=== PATIENT | female | born 1980 | race Caucasian/White ===

== ENCOUNTER 2016-11-29 07:00 | Emergency (ER) | payer MEDICAID ==
[~2016-11-29] VITALS: Ht 162.6 cm; Wt 70.0 kg
[~2016-11-29 07:00] MED LIST: FLUC100T2 PO; FLUC150T PO
[2016-11-29 07:12] VITALS: BP 95/61; PULSE 70; RESP 17; TEMP 98.7; O2SAT 97
[2016-11-29] MEDS ORDERED: SODIUM CHLOR 0.9% 1000 ML INJ 1,000 ML IV ONE (07:45)
[2016-11-29] MEDS ORDERED: SODIUM CHLORIDE 0.9% FLUSH 10 ML FLUSH IVF PRN (07:45)
[2016-11-29] MEDS ORDERED: ONDANSETRON HCL 4 MG/2 ML VIAL IVP ONE (07:45)
--- NOTE | 2016-11-29 07:53 | PD ---
HPI Chief Complaint: Alcohol/Drug Intoxication Time Seen by Provider: 07:27 Travel History International Travel<30 days: No Contact w/Intl Traveler<30days: No Traveled to known affect area: No History of Present Illness HPI Patient is a 36 year old female who is BIBEMS for what they say is intoxication. Per EMS, she was drinking with family and she passed out from drinking too much. EMS reports she doesn't normally drink. The patient awakens easily, and says she was drinking last night and that she has no complaints. When family arrived, they report she had 2 beers and some coffee last night. They says she complained of some chest pain and she vomited. They say she then became unresponsive and stiff and she bit her tongue. They report this is not the first time this has happened and it has happened when she was not drinking. [facility] Past Medical History Medical History: Denies Significant Hx ?: Not : 2 Para: 2 Past Surgical History Surgical History: No Previous Surgery Section: Yes (2007) Social History Alcohol Use: No Tobacco Use: No Substance Use: No Allergies-Medications (Allergen,Severity, Reaction): Coded Allergies: No Known Allergies (Verified , 12/29/14) Reported Meds & Prescriptions Reported Meds & Active Scripts Active No Active Prescriptions or Reported Medications Review of Systems ROS Limitations: Intoxication, Altered Mental Status Physical Exam Narrative GENERAL: Sleepy, but awakens easily. SKIN: Focused skin assessment warm/dry. HEAD: Atraumatic. Normocephalic. EYES: Pupils equal and round and reactive. No scleral icterus. Extraocular movements intact. ENT: Mucous membranes pink and moist. NECK: Trachea midline. No JVD. CARDIOVASCULAR: Regular rate and rhythm. No murmur appreciated. RESPIRATORY: No accessory muscle use. Clear to auscultation. Breath sounds equal bilaterally. GASTROINTESTINAL: Abdomen soft, non-tender, nondistended. MUSCULOSKELETAL: No obvious deformities. No clubbing. No cyanosis. No edema. NEUROLOGICAL: Awake and alert. No obvious cranial nerve deficits. Motor grossly within normal limits. Normal speech. PSYCHIATRIC: Appropriate mood and affect; insight and judgment normal. Data Data Last Documented VS Vital Signs Date Time Temp Pulse Resp B/P Pulse Ox O2 Delivery O2 Flow Rate FiO2 11/29/16 09:06 87 18 109/66 98 Room Air 11/29/16 07:12 98.7 Orders Electrocardiogram (11/29/16 07:45) Ed Urine Pregnancytest Poc (11/29/16 07:45) Complete Blood Count With Diff (11/29/16 07:45) Comprehensive Metabolic Panel (11/29/16 07:45) Troponin I (11/29/16 07:45) Act Partial Throm Time (Ptt) (11/29/16 07:45) Prothrombin Time / Inr (Pt) (11/29/16 07:45) Urinalysis - C+S If Indicated (11/29/16 07:45) Ua Includes Microscopic (11/29/16 07:45) Chest, Single Ap (11/29/16 07:45) Ct Brain W/O Iv Contrast(Rout) (11/29/16 07:45) Ecg Monitoring (11/29/16 07:45) Iv Access Insert/Monitor (11/29/16 07:45) Oximetry (11/29/16 07:45) Ondansetron Inj (Zofran Inj) (11/29/16 07:45) Sodium Chloride 0.9% Flush (Ns Flush) (11/29/16 07:45) Sodium Chlor 0.9% 1000 Ml Inj (Ns 1000 M (11/29/16 07:45) Alcohol (Ethanol) (11/29/16 07:45) Drug Screen, Random Urine (11/29/16 07:45) Mandatory Outpatient Referral (11/29/16 10:37) Labs Laboratory Tests Test 11/29/16 11/29/16 07:55 09:00 White Blood Count 6.1 TH/MM3 Red Blood Count 4.52 MIL/MM3 Hemoglobin 13.1 GM/DL Hematocrit 39.1 % Mean Corpuscular Volume 86.5 FL Mean Corpuscular Hemoglobin 28.9 PG Mean Corpuscular Hemoglobin 33.3 % Concent Red Cell Distribution Width 13.9 % Platelet Count 238 TH/MM3 Mean Platelet Volume 7.1 FL Neutrophils (%) (Auto) 73.2 % Lymphocytes (%) (Auto) 20.8 % Monocytes (%) (Auto) 5.6 % Eosinophils (%) (Auto) 0.2 % Basophils (%) (Auto) 0.2 % Neutrophils # (Auto) 4.5 TH/MM3 Lymphocytes # (Auto) 1.3 TH/MM3 Monocytes # (Auto) 0.3 TH/MM3 Eosinophils # (Auto) 0.0 TH/MM3 Basophils # (Auto) 0.0 TH/MM3 CBC Comment DIFF FINAL Differential Comment Prothrombin Time 11.7 SEC Prothromb Time International 1.1 RATIO Ratio Activated Partial 21.9 SEC Thromboplast Time Sodium Level 144 MEQ/L Potassium Level 3.6 MEQ/L Chloride Level 113 MEQ/L Carbon Dioxide Level 22.5 MEQ/L Anion Gap 9 MEQ/L Blood Urea Nitrogen 8 MG/DL Creatinine 0.38 MG/DL Estimat Glomerular Filtration 192 ML/MIN Rate Random Glucose 124 MG/DL Calcium Level 7.7 MG/DL Total Bilirubin 0.3 MG/DL Aspartate Amino Transf 65 U/L (AST/SGOT) Alanine Aminotransferase 104 U/L (ALT/SGPT) Alkaline Phosphatase 63 U/L Troponin I LESS THAN 0.02 NG/ML Total Protein 6.9 GM/DL Albumin 3.4 GM/DL Ethyl Alcohol Level 104 MG/DL Urine Color LIGHT-YELLOW Urine Turbidity CLEAR Urine pH 6.0 Urine Specific [place] 1.007 Urine Protein NEG mg/dL Urine Glucose (UA) NEG mg/dL Urine Ketones NEG mg/dL Urine Occult Blood SMALL Urine Nitrite NEG Urine Bilirubin NEG Urine Urobilinogen LESS THAN 2.0 MG/DL Urine Leukocyte Esterase NEG Urine WBC 1 /hpf Urine Squamous Epithelial <1 /hpf Cells Microscopic Urinalysis Comment CULT NOT INDICATED Urine Opiates Screen NEG Urine Barbiturates Screen NEG Urine Amphetamines Screen NEG Urine Benzodiazepines Screen NEG Urine Cocaine Screen NEG Urine Cannabinoids Screen NEG MDM Medical Decision Making Medical Screen Exam Complete: Yes Emergency Medical Condition: Yes Medical Record Reviewed: Yes Differential Diagnosis Intoxication versus seizure versus electrolyte abnormality Narrative Course Patient is a 36-year-old female who comes in after she syncopized or possibly had a seizure. Her family reports she only had 2 drinks last night. Exam shows no acute abnormalities. She is currently completely awake and alert, and has no memory of the event last night. Labs sent show elevated AST and ALTs. She is informed of these results. She is advised to avoid alcohol and Tylenol. Advised to follow-up with her doctor to have these tests repeated. CT head performed shows no acute abnormalities. Mandatory referral placed to neurology for possible seizure. She is advised to follow up regarding this. Advised to return to the ED as needed for any worsening symptoms. Diagnosis Primary Impression: Syncope Qualified Code: R55 - Syncope, unspecified syncope type Patient Instructions: General Instructions, New-Onset Seizure in Adults (ED), Syncope (ED) Additional Instructions: Follow-up with your doctor regarding your liver enzymes that were elevated today. Follow up with neurology for possible seizure activity. Avoid alcohol and Tylenol use. Drink plenty of fluids. Return to the ED as needed for any worsening symptoms. Scripts No Active Prescriptions or Reported Meds Disposition: 01 DISCHARGE HOME Condition: Stable Akua Noyola MD Nov 29, 2016 07:53
[2016-11-29 08:22] LABS: AUTOMATED NEUTROPHIL # 4.5 TH/MM3 (1.8-7.7); BASOPHIL % 0.2 % (0.0-2.0); EOSINOPHIL % 0.2 % (0.0-4.0); HEMATOCRIT 39.1 % (35.0-46.0); HEMO FLAGS DIFF FINAL; LYMPH % 20.8 % (9.0-44.0); LYMPHOCYTE # 1.3 TH/MM3 (1.0-4.8); MEAN CELL VOLUME 86.5 FL (80.0-100.0); MEAN CORPUSCULAR HEMOGLOBIN 28.9 PG (27.0-34.0); MEAN CORPUSCULAR HGB CONC 33.3 % (32.0-36.0); MONO % 5.6 % (0.0-8.0); NEUT % 73.2 % (16.0-70.0); PLATELET COUNT 238 TH/MM3 (150-450); RED BLOOD COUNT 4.52 MIL/MM3 (4.00-5.30); RED CELL DISTRIBUTION WIDTH 13.9 % (11.6-17.2); WHITE BLOOD COUNT 6.1 TH/MM3 (4.0-11.0)
[2016-11-29 08:30] LABS: APTT (PATIENT) 21.9 SEC (24.3-30.1); INTERNATIONAL NORMALIZED RATIO 1.1 RATIO; PROTHROMBIN TIME - PATIENT 11.7 SEC (9.8-11.6)
[2016-11-29 08:46] LABS: ANION GAP 9 MEQ/L (5-15); AST (GOT) 65 U/L (15-37); BICARBONATE 22.5 MEQ/L (21.0-32.0); BLOOD UREA NITROGEN 8 MG/DL (7-18); CHLORIDE 113 MEQ/L (98-107); GLOMERULAR FILTRATION RATE 192 ML/MIN (>89); POTASSIUM 3.6 MEQ/L (3.5-5.1); SODIUM (NA) 144 MEQ/L (136-145)
[2016-11-29 08:47] LABS: ALT (GPT) 104 U/L (10-53)
[2016-11-29 08:51] LABS: ALKALINE PHOSPHATASE 63 U/L (45-117); TOTAL BILIRUBIN ADULT 0.3 MG/DL (0.2-1.0)
--- NOTE | 2016-11-29 08:52 | RADRPT ---
EXAM DATE/TIME: 11/29/2016 08:24 [facility] COMPARISON: No previous studies available for comparison. INDICATIONS : Shortness of breath. MEDICAL HISTORY : None. SURGICAL HISTORY : None. ENCOUNTER: Initial ACUITY: 1 day PAIN SCORE: 0/10 LOCATION: Bilateral chest FINDINGS: Portable AP view of the chest demonstrates a normal-sized cardiac silhouette. No effusion, consolidat ion, or pneumothorax is visualized. The bones and soft tissues demonstrate no acute abnormality. CONCLUSION: No acute cardiopulmonary abnormality is identified. Darryl Kong MD on November 29, 2016 at 8:50 Board Certified Radiologist. This report was verified electronically.
[2016-11-29 09:06] VITALS: BP 109/66; PULSE 87; RESP 18; O2SAT 98
[2016-11-29 09:22] LABS: BLOOD, URINE SMALL (NEG); GLUCOSE,URINE NEG (NEG); KETONE, URINE NEG (NEG); NITRITE,URINE NEG (NEG); SQUAMOUS EPITHELIAL CELL URINE <1 /hpf (0-5); URINE COLOR LIGHT-YELLOW (YELLW/STRAW)
[2016-11-29 09:25] LABS: COMMENT (UR) CULT NOT INDICATED; CULTURE IF INDICATED CULT NOT INDICATED
[2016-11-29 09:37] LABS: AMPHETAMINE, URINE NEG (NEG); BARBITURATES, URINE NEG (NEG); COCAINE, URINE NEG (NEG)
--- NOTE | 2016-11-29 10:01 | RADRPT ---
EXAM DATE/TIME: 11/29/2016 09:35 [facility] COMPARISON: CT BRAIN W/O CONTRAST, April 30, 2010, 2:28. INDICATIONS : Dizziness, possible seizure. RADIATION DOSE: 26.55 CTDIvol (mGy) MEDICAL HISTORY : None SURGICAL HISTORY : None. ENCOUNTER: Initial ACUITY: 1 day PAIN SCALE: 0/10 LOCATION: cranial TECHNIQUE: Multiple contiguous axial images were obtained of the head. Using automated exposure control and adj ustment of the mA and/or kV according to patient size, radiation dose was kept as low as reasonably a chievable to obtain optimal diagnostic quality images. DICOM format image data is available electro nically for review and comparison. FINDINGS: CEREBRUM: The ventricles are normal for age. No evidence of midline shift, mass lesion, hemorrhage or acute in farction. No extra-axial fluid collections are seen. POSTERIOR FOSSA: The cerebellum and brainstem are intact. The 4th ventricle is midline. The cerebellopontine angle i s unremarkable. EXTRACRANIAL: The visualized portion of the orbits is intact. SKULL: The calvaria is intact. No evidence of skull fracture. CONCLUSION: Normal examination for a patient of this age. No significant change has occurred. Serafin Steinberg MD on November 29, 2016 at 9:57 Board Certified Radiologist. This report was verified electronically.
--- NOTE | 2016-11-29 14:44 | EKG ---
Date Performed: 11/29/2016 Time Performed: 08:38:54 PTAGE: 36 years EKG: Sinus rhythm NORMAL ECG NO PREVIOUS TRACING DOCTOR: Eva Virgen Interpretating Date/Time 11/29/2016 14:43:43
== END 2016-11-29 11:10 | disposition home or self-care (01) ==
LOC: NEPE 07:00
DX: R55 Syncope and collapse (principal); R07.9 Chest pain, unspecified; R11.10 Vomiting, unspecified
CPT/HCPCS: 70450; 71010; 80053; 80307; 81001; 84484; 84703; 85025; 85610; 85730; 93005; 96361; 96374; 99285; J2405; J7030